=== PATIENT | female | born 1940 | race Caucasian/White ===

== ENCOUNTER 2020-12-06 09:38 | Emergency (ER) | payer OTHER ==
[~2020-12-06] VITALS: Ht 154.9 cm; Wt 81.7 kg
[~2020-12-06 09:38] MED LIST: ACETAMINOPHEN325 M1 PO; ADRENOID CAPSU1 EACH PO; ASPIRIN325 PO; BACTRIM DS TAB1 EACH PO; COUMADIN7.5 MG PO; CYMBALTA20 MG PO; DIOVAN; DIOVAN HCT 1601 EAC1 PO; DIOVAN HCT 1601 EACH PO; DOXYCYCLINE 10100 M1 PO; GRAPESEED1 ML; HYDROCHLOROTH12.5 MG PO; KEFLEX500 M1 PO; LASIX 20 MG TAB20 MG PO; LEVAQUIN 500 M500 MG PO; MACROBID 100 M100 M1 PO; MULTIVITAMINS PO; NORCO 5-325 TA1 EACH PO; OCUVITE TABLET1 EAC1 PO; PENICILLIN VK250 MG PO; POTASSIUM20; SSD CREAM 1% 5050 GM TOP; TRAMADOL 50 MG50 MG PO; ULTRAM 50MG TAB50 MG PO; VITAMIN B-125000 MCG; VITAMIN D400 UNI4; XANAX 0.5 MG0.5 M1 PO; ZPAK PO
[2020-12-06 10:23] VITALS: BP 131/74
[2020-12-06] MEDS ORDERED: VITAMIN B-1100 M2 PO (15:13)
[2020-12-06] MEDS ORDERED: NORVASC5 MG PO (15:14)
[2020-12-06] MEDS ORDERED: ELIQUIS5 MG (15:15)
[2020-12-06] MEDS ORDERED: DIVALPROEX SOD125 M1 PO (15:16)
[2020-12-06] MEDS ORDERED: NEURONTIN 400M400 M2 PO (15:17)
[2020-12-06] MEDS ORDERED: LISINOPRIL5 MG PO (15:18)
[2020-12-06] MEDS ORDERED: LOPRESSOR50 MG PO (15:19)
[2020-12-06] MEDS ORDERED: MICONAZOLE 11 EACH TOP (15:20)
[2020-12-06] MEDS ORDERED: SEROQUEL300 MG PO (15:21)
[2020-12-06] MEDS ORDERED: CRESTOR40 MG PO (15:22)
[2020-12-06] MEDS ORDERED: LASIX 40 MG TAB40 MG PO (15:30)
[2020-12-06] MEDS ORDERED: NYSTATIN 100,0015 G1 TOP (15:31)
[2020-12-06] MEDS ORDERED: TRIAMCINOLONE A80 G2 TOP (15:34)
== END 2020-12-06 10:26 | disposition admitted as inpatient to this hospital (09) ==
LOC: ER 09:38
DX: F30.9 Manic episode, unspecified (principal); Z20.822 Contact with and (suspected) exposure to COVID-19; I10 Essential (primary) hypertension; M19.90 Unspecified osteoarthritis, unspecified site; Z86.718 Personal history of other venous thrombosis and embolism; Z86.711 Personal history of pulmonary embolism; Z79.2 Long term (current) use of antibiotics; Z79.899 Other long term (current) drug therapy; Z79.82 Long term (current) use of aspirin; Z88.1 Allergy status to other antibiotic agents; Z88.2 Allergy status to sulfonamides

== ENCOUNTER 2020-12-06 11:29 | Inpatient (IN) | payer OTHER ==
[~2020-12-06] VITALS: Ht 157.5 cm; Wt 86.2 kg
[2020-12-06 10:40] VITALS: BP 133/61
[2020-12-06 13:38] LABS: CALCIUM 9.3 mg/dL (8.5-10.1); CREATININE 1.1 mg/dL (0.6-1.0); MAGNESIUM 2.6 mg/dL (1.8-2.4); POTASSIUM 4.4 mmol/L (3.5-5.1)
[2020-12-06] MEDS ORDERED: VITAMIN B-1100 M2 PO (15:13)
[2020-12-06] MEDS ORDERED: NORVASC5 MG PO (15:14)
[2020-12-06] MEDS ORDERED: ELIQUIS5 MG (15:15)
[2020-12-06] MEDS ORDERED: DIVALPROEX SOD125 M1 PO (15:16)
[2020-12-06] MEDS ORDERED: NEURONTIN 400M400 M2 PO (15:17)
[2020-12-06] MEDS ORDERED: LISINOPRIL5 MG PO (15:18)
[2020-12-06] MEDS ORDERED: LOPRESSOR50 MG PO (15:19)
[2020-12-06] MEDS ORDERED: MICONAZOLE 11 EACH TOP (15:20)
[2020-12-06] MEDS ORDERED: SEROQUEL300 MG PO (15:21)
[2020-12-06] MEDS ORDERED: CRESTOR40 MG PO (15:22)
[2020-12-06] MEDS ORDERED: LASIX 40 MG TAB40 MG PO (15:30)
[2020-12-06] MEDS ORDERED: NYSTATIN 100,0015 G1 TOP (15:31)
[2020-12-06] MEDS ORDERED: TRIAMCINOLONE A80 G2 TOP (15:34)
[2020-12-06 18:52] VITALS: BP 141/50
[2020-12-07 06:39] LABS: ANION GAP 13 mmol/L (7-16); BUN 33 mg/dL (7-18); CALCIUM 8.8 mg/dL (8.5-10.1); CHLORIDE 109 mmol/L (98-107); CHOLESTEROL 118 mg/dL (<200); CO2 22 mmol/L (21-32); CREATININE 1.3 mg/dL (0.6-1.0); GLUCOSE 86 mg/dL (74-106); HDL CHOLESTEROL 50 mg/dL (>40); LDL CHOLESTEROL 47 mg/dL (<100); POTASSIUM 4.1 mmol/L (3.5-5.1); SODIUM 144 mmol/L (136-145); TC:HDL 2.4 Ratio (Not establshd); TRIGLYCERIDE 107 mg/dL (<150); VLDL 21 mg/dL (<40)
[2020-12-07 06:43] LABS: SERUM ASSESSMENT Clear
[2020-12-07 09:56] VITALS: BP 138/60
[2020-12-07 11:45] VITALS: BP 138/60
[2020-12-07 19:44] VITALS: BP 140/57
[2020-12-08 00:06] LABS: GLYCOHEMOGLOBIN (HGB A1C) 5.3 % (4.8-5.6)
[2020-12-08 13:03] VITALS: BP 124/66
[2020-12-08 18:55] VITALS: BP 106/48
[2020-12-08 20:20] VITALS: BP 106/48
[2020-12-09 07:10] VITALS: BP 121/48
[2020-12-09 19:01] VITALS: BP 133/58
[2020-12-10 20:52] VITALS: BP 137/59
[2020-12-11 08:52] VITALS: BP 127/65
[2020-12-11 19:38] VITALS: BP 121/49
[2020-12-12 10:03] VITALS: BP 127/65
[2020-12-12 10:08] VITALS: BP 122/48
[2020-12-12 19:45] VITALS: BP 121/51
[2020-12-13 01:59] VITALS: BP 121/51
[2020-12-13 09:06] VITALS: BP 86/43
[2020-12-13 10:23] VITALS: BP 128/78
[2020-12-13 19:01] VITALS: BP 117/64
[2020-12-14 09:14] VITALS: BP 99/44
[2020-12-14 11:37] LABS: URINE BILIRUBIN NEGATIVE (Negative); URINE BLOOD NEGATIVE (Negative); URINE CLARITY CLEAR; URINE COLOR YELLOW; URINE GLUCOSE-RANDOM* NEGATIVE (Negative); URINE KETONES NEGATIVE (Negative); URINE LEUKOCYTES-REFLEX 1+ (Negative); URINE NITRITE-REFLEX NEGATIVE (Negative); URINE PROTEIN (DIPSTICK) NEGATIVE (Negative); URINE SPECIFIC GRAVITY 1.025 (1.005-1.035); URINE UROBILINOGEN 0.2 E.U./dl (0.2-1.0)
[2020-12-14 11:45] LABS: SQUAMOUS 4-10 Moderate /LPF (0-3); TRANSITIONAL EPITHEL CELL 0-3 Few /LPF (None Seen)
[2020-12-14 11:46] LABS: AMORPHOUS URATES Few /LPF (None Seen); BACTERIA-REFLEX 1-9 Few /HPF (None Seen); CASTS None Seen /LPF (None Seen); URINE RBC 1-2 Rare /HPF (NONE SEEN); URINE WBC-REFLEX 0-5 Rare /HPF (0-5)
[2020-12-14 11:46] LABS: ABSOLUTE NEUTROPHILS 4.3 thou/uL (1.4-8.2); BASOPHILS 0.5 % (0.0-2.0); EOSINOPHILS 4.8 % (0.0-3.0); HEMATOCRIT 32.9 % (37.0-47.0); HEMOGLOBIN 10.5 gm/dL (12.0-15.0); LYMPHOCYTES 19.7 % (24.0-44.0); MCH 30.6 pg (26.0-34.0); MCHC 31.9 g/dL (28.0-37.0); MCV 95.7 fL (80.0-100.0); MONOCYTES 11.5 % (1.0-8.0); PLATELET COUNT 135 thou/uL (150-400); POLYS 63.5 % (36.0-66.0); RBC 3.44 mil/uL (4.20-5.00); RDW 15.6 % (10.5-14.5); WBC 6.7 thou/uL (4.0-11.0)
[2020-12-14 11:54] LABS: CALCIUM 8.6 mg/dL (8.5-10.1); CREATININE 2.3 mg/dL (0.6-1.0); POTASSIUM 5.6 mmol/L (3.5-5.1)
[2020-12-14 20:03] VITALS: BP 111/53
[2020-12-15 06:00] LABS: CALCIUM 8.3 mg/dL (8.5-10.1); CREATININE 1.8 mg/dL (0.6-1.0)
[2020-12-15 06:26] LABS: POTASSIUM 5.2 mmol/L (3.5-5.1)
[2020-12-15 08:58] VITALS: BP 114/58
[2020-12-15 10:17] VITALS: BP 114/58
[2020-12-15 20:40] VITALS: BP 141/47
[2020-12-15 23:45] VITALS: BP 141/47
[2020-12-16 06:29] LABS: CALCIUM 8.8 mg/dL (8.5-10.1); CREATININE 1.1 mg/dL (0.6-1.0); MAGNESIUM 2.6 mg/dL (1.8-2.4); POTASSIUM 4.6 mmol/L (3.5-5.1)
[2020-12-16 09:33] VITALS: BP 152/54
[2020-12-16 19:23] VITALS: BP 143/66
[2020-12-16 23:03] VITALS: BP 143/66
[2020-12-17 07:30] VITALS: BP 155/63
[2020-12-17 10:09] VITALS: BP 155/63
[2020-12-17] MEDS ORDERED: MACROBID 100 M100 M1 PO (12:21)
[2020-12-17] MEDS ORDERED: LOPRESSOR50 PO (12:22)
[2020-12-17] MEDS ORDERED: DEPAKOTE500 MG PO (12:23)
[2020-12-17] MEDS ORDERED: SEROQUEL 100 M100 M1 PO (12:24)
[2020-12-17 13:29] VITALS: BP 155/63
--- NOTE | 2020-12-18 22:29 | D ---
[facility] [place] [address] DISCHARGE SUMMARY Name: EDWARD AVILES Room #: 519A-A DIS IN M.R.#: [id number] Admission: 12/06/20 Attend Phys: Maine Quesada DO Discharge: 12/17/20 Date of : 42 Report #: [id number] THIS REPORT FOR: cc: FAM - Family physician unknown FAM - Family physician unknown Maine Quesada DO ~ DOC #: [id number] MAINE Quesada DO DATE OF SERVICE: 12/17/2020 DATE OF ADMISSION: 12/06/2020 DATE OF DISCHARGE: 12/17/2020 ATTENDING PSYCHIATRIST: Maine Quesada DO ACADEMIC VICE PRESIDENT: Ken Sequeira M.D. DISCHARGE DIAGNOSIS: Bipolar 1 disorder, most recent episode manic, severe, improved. ADDITIONAL DIAGNOSES: Hypercoagulable state, history of pulmonary embolism, deep venous thrombosis, hypertension, hyperkalemia, gastroesophageal reflux disease, chronic obstructive pulmonary disease, chronic kidney disease stage III. The patient also had acute kidney injury this admission and urinary tract infection. Positive for Enterococcus species. The patient is discharging to independent living at the [facility]. Psychiatry aapt with Dr. Mendoza 01/17/2021 at 12:45 via telemedicine. PRIMARY CARE PHYSICIAN: Dr. Estevan Simpson on 12/23/2020 at 1430. DISCHARGE DIET: Regular. ACTIVITY LEVEL: As tolerated. No driving. No alcohol or recreational drugs. The patient was given crisis suicide hotline number. DISCHARGE MEDICATIONS: Multivitamin oral daily. The hydrochlorothiazide, Lasix and potassium chloride she is not to take due to her acute kidney injury. We also discontinued Cymbalta this admission. We do want to take thiamine 100 mg daily supplement, Eliquis 5 mg oral twice daily, gabapentin 400 mg twice a day for pain, Crestor 40 mg oral at bedtime for hyperlipidemia Macrodantin 100 mg oral twice a day for UTI 8 more doses, metoprolol tartrate 50 mg oral b.i.d., Depakote ER 500 mg oral twice a day, Seroquel 100 mg oral at bedtime. [facility] [address] [place] [address] DISCHARGE SUMMARY Name: EDWARD AVILES Room #: 519A-A [facility].#: [id number] Admission: 12/06/20 Attend Phys: Maine Quesada DO Discharge: 12/17/20 Date of : 42 Report #: [id number] Significant laboratories this admission on 12/14, H and H of 10.5 and 32.9. White count 6.7, platelet count 135. Chemistries, creatinine 2.3 on 12/14 and on 12/15 it was 1.1, sodium 142, potassium 4.6, chloride 109, bicarbonate 22, BUN 26, creatinine 1.1. Magnesium high normal at 2.6, calcium range from 8.8. Ammonia was negative. A1c this admission was 5.3. Lipids were within normal limits. REASON FOR ADMISSION: The patient sent over from [facility]. Apparently, speech was rapid, rambling, left home, recently changing Seroquel to Depakote. HOSPITAL COURSE: The patient was admitted to Geriatric Psychiatry Unit. Depakote was titrated to 500 mg p.o. b.i.d., Initially Seroquel was 300 mg at bedtime, Seroquel was judged to be too sedating and patient developed acute kidney injury so Seroquel reduced to 100 mg and then gave her 25 mg twice a day during the day to help resolving delirium. The patient's mood improved. Initially on geriatric psychiatry unit she was on labile, manic side. Her sons are trying to find her in assisted living. Her one son came in from [place] to help Bhargav with placement, situate temporarily. On the day of discharge, she was stable. No SI, no HI. PHYSICAL EXAMINATION: VITAL SIGNS: Temperature 36.7, pulse 89, respirations 18, BP 135/63, O2 sat 100%. GENERAL: Unassisted gait with walker, wearing glasses. Normal station. MENTAL STATUS EXAMINATION: This is a well-developed, age-appearing female. Attention intact. Concentration limited. Speech, increased rate, normal volume and tone. mood/affect, calm consrticed, congruent Thought process: Linear and goal directed. Thought content: Focused on discharge. Insight and judgment are limited. Fund of knowledge greater than average. Prognosis for this patient is guarded. MAINE Quesada DO AHK/DARIUSZ/ANI <ELECTRONICALLY SIGNED> By: Maine Quesada DO 12/18/20 [id number] Maine Quesada DO /nt
== END 2020-12-17 15:15 | disposition home or self-care (01) | DRG 885 ==
LOC: SBH 11:29
PROVIDERS: Internal Medicine; Psychiatry & Neurology Psychiatry; ADMIT Psychiatry & Neurology Psychiatry; ATTEND Psychiatry & Neurology Psychiatry
DX: F31.9 Bipolar disorder, unspecified (principal); N17.9 Acute kidney failure, unspecified; N18.30 Chronic kidney disease, stage 3 unspecified; D68.59 Other primary thrombophilia; N39.0 Urinary tract infection, site not specified; E87.5 Hyperkalemia; K21.9 Gastro-esophageal reflux disease without esophagitis; J44.9 Chronic obstructive pulmonary disease, unspecified; I12.9 Hypertensive chronic kidney disease with stage 1 through stage 4 chronic kidney disease, or unspecified chronic kidney disease; M19.90 Unspecified osteoarthritis, unspecified site; D63.8 Anemia in other chronic diseases classified elsewhere; E78.5 Hyperlipidemia, unspecified; F29 Unspecified psychosis not due to a substance or known physiological condition; Z86.718 Personal history of other venous thrombosis and embolism; Z86.711 Personal history of pulmonary embolism; Z88.1 Allergy status to other antibiotic agents; Z88.2 Allergy status to sulfonamides; Z88.8 Allergy status to other drugs, medicaments and biological substances; Z79.01 Long term (current) use of anticoagulants; Z79.899 Other long term (current) drug therapy; Z87.891 Personal history of nicotine dependence; Z72.89 Other problems related to lifestyle
CPT/HCPCS: 10880